=== PATIENT | female | born 1940 | race African-American/Black ===

== ENCOUNTER 2019-09-28 10:08 | Emergency (ER) | payer OTHER ==
[2019-09-28 11:07] LABS: Absolute Lymphocytes (CBC) 0.8 K/uL (0.7-4.9); Basophils % 0.4 % (0-1.3); Hematocrit 33.9 % (36.0-45.0); Lymphocytes % 10.1 % (15.3-44.8); MPV 8.3 fL (7.6-11.3); RBC Red Blood Cell Count 3.83 M/uL (3.86-4.86)
[2019-09-28 11:21] LABS: Potassium 3.5 mmol/L (3.5-5.1)
--- NOTE | 2019-09-28 11:55 | ER ---
Nurse's Notes [facility] Name: Shelby Narvaez Age: 79 yrs Sex: Female : 1940 Arrival Date: 09/28/2019 Time: 10:10 Bed 13 Private MD: Maxim Ha F Diagnosis: Acute upper respiratory infection, unspecified Presentation: 09/28 10:14 Presenting complaint: Patient states: i started coughing 2 days, i have had chills, tw2 coughing up yellow mucous, denies sob. Transition of care: patient was not received from another setting of care. Onset of symptoms was September 28, 2019. Risk Assessment: Do you want to hurt yourself or someone else?. Initial Sepsis Screen: Does the patient meet any 2 criteria? HR > 90 bpm. No. Patient's initial sepsis screen is negative. Does the patient have a suspected source of infection? Yes: Productive cough/pneumonia. Care prior to arrival: None. 10:14 Method Of Arrival: Ambulatory tw2 10:14 Acuity: GEOFFREY 3 tw2 Triage Assessment: 10:16 General: Appears in no apparent distress. obese, well groomed, Behavior is calm, tw2 cooperative, appropriate for age. Pain: Denies pain. Historical: - Allergies: 10:20 No Known Allergies; tw2 - Home Meds: 10:20 Nifedipine ER 60 mg Oral [Active]; Procardia 10 mg Oral cap 1 cap 3 times per day tw2 [Active]; metoprolol tartrate 50 mg Oral tab 1 tab [Active]; atorvastatin 20 mg oral tab 1 tab once daily [Active]; alendronate 70 mg/75 mL oral soln 75 mL once wkly [Active]; Centrum Silver Women 8 mg iron-400 mcg-300 mcg oral tab [Active]; Iron CR Oral [Active]; aspirin 81 mg Oral chew 1 tab once daily [Active]; meloxicam 7.5 mg oral tab 1 tab once daily [Active]; - PMHx: 10:20 Hypertension; Atrial Fib; tw2 - Immunization history:: Adult Immunizations. - Social history:: Smoking status: . - Ebola Screening: : Patient denies travel to an Ebola-affected area in the 21 days before illness onset. Screenin:25 Abuse screen: Denies threats or abuse. Nutritional screening: No deficits noted. rb1 Tuberculosis screening: No symptoms or risk factors identified. Fall Risk None identified. Assessment: 10:25 General: Appears in no apparent distress. comfortable, Behavior is calm, cooperative, rb1 Reports chills for 2-3 days. Pain: Complains of pain in diaphragm Pain currently is 5 out of 10 on a pain scale. Aggravated by coughing. Neuro: Level of Consciousness is awake, alert, obeys commands, Oriented to person, place, time, situation. Cardiovascular: Capillary refill < 3 seconds is brisk in bilateral fingers. Respiratory: Reports cough that is productive, yellow Denies shortness of breath. GI: Reports diarrhea, since this morning. : Reports urgency. Derm: Skin is dry, Skin is normal, Skin temperature is warm. 11:23 Reassessment: Patient appears in no apparent distress at this time. No changes from rb1 previously documented assessment. Family at the bedside. 12:20 Reassessment: Patient appears in no apparent distress at this time. Patient and/or rb1 family updated on plan of care and expected duration. Pain level reassessed. Patient is alert, oriented x 3, equal unlabored respirations, skin warm/dry/pink. Vital Signs: 10:15 BP 144 / 87; Pulse 98; Resp 18; Temp 100.1(O); Pulse Ox 95% on R/A; Weight 81.65 kg tw2 (R); Height 4 ft. 11 in. (149.86 cm); Pain 5/10; 11:24 BP 174 / 82; Pulse 83; Resp 17; Pulse Ox 98% on R/A; rb1 12:20 BP 168 / 83; Pulse 87; Resp 17; Pulse Ox 100% on R/A; Pain 5/10; rb1 10:15 Body Mass Index 36.36 (81.65 kg, 149.86 cm) tw2 ED Course: 10:10 Patient arrived in ED. mr 10:11 Maxim Ha MD is Private Physician. mr 10:12 Femi Diaz MD is Attending Physician. joyce 10:15 Triage completed. tw2 10:18 Rosa Maria Kamara FNP-C is [facility]. kb 10:20 Arm band placed on. tw2 10:25 Patient has correct armband on for positive identification. Placed in gown. Bed in low rb1 position. Call light in reach. Side rails up X 1. Pulse ox on. NIBP on. Warm blanket given. 10:36 Kait Horowitz, RN is Primary Nurse. rb1 11:02 Initial lab(s) drawn, by me, sent to lab. Flu and/or RSV swab sent to lab. Inserted jb1 saline lock: 22 gauge in left antecubital area, using aseptic technique. Blood collected. 11:39 X-ray completed. Patient tolerated procedure well. Patient moved back from radiology. [facility] 12:28 No provider procedures requiring assistance completed. IV discontinued, intact, rb1 bleeding controlled, No redness/swelling at site. Pressure dressing applied. Administered Medications: No medications were administered Outcome: 11:54 Discharge ordered by . kb 12:28 Patient left the ED. rb1 12:28 Discharged to home via wheelchair, with family. rb1 12:28 Condition: stable 12:28 Discharge instructions given to patient, Instructed on discharge instructions, follow up and referral plans. medication usage, Demonstrated understanding of instructions, follow-up care, medications, Prescriptions given X 1. Signatures: Richard Swan jb1 Rosa Maria Kamara, SPIRITUAL ADVISOR-C SPIRITUAL ADVISOR-Femi Chaidez MD MD cha Rivera, Mary CachorroDella 1 Kait Horowitz, RN RN rb1 Shira Boyer RN RN tw2
--- NOTE | 2019-09-28 11:56 | EDPHYS ---
Physician Documentation [facility] Name: Shelby Narvaez Age: 79 yrs Sex: Female : 1940 Arrival Date: 09/28/2019 Time: 10:10 Bed 13 Private MD: Maxim Ha F ED Physician Femi Diaz HPI: 09/28 10:29 This 79 yrs old Black Female presents to ER via Ambulatory with complaints of Cough. kb 10:29 The patient or guardian reports cough, that is intermittent, described as moderate, kb with no sputum, flu symptoms, low-grade fever. Onset: The symptoms/episode began/occurred 2 day(s) ago. Severity of symptoms: At their worst the symptoms were moderate, in the emergency department the symptoms have improved, mildly. Modifying factors: The symptoms are alleviated by nothing, the symptoms are aggravated by nothing. Associated signs and symptoms: Pertinent positives: fever, Pertinent negatives: chest pain, diarrhea, ear ache, nausea, rhinorrhea, sore throat, vomiting. The patient has not experienced similar symptoms in the past. The patient has not recently seen a physician. Historical: - Allergies: 10:20 No Known Allergies; tw2 - Home Meds: 10:20 Nifedipine ER 60 mg Oral [Active]; Procardia 10 mg Oral cap 1 cap 3 times per day tw2 [Active]; metoprolol tartrate 50 mg Oral tab 1 tab [Active]; atorvastatin 20 mg oral tab 1 tab once daily [Active]; alendronate 70 mg/75 mL oral soln 75 mL once wkly [Active]; Centrum Silver Women 8 mg iron-400 mcg-300 mcg oral tab [Active]; Iron CR Oral [Active]; aspirin 81 mg Oral chew 1 tab once daily [Active]; meloxicam 7.5 mg oral tab 1 tab once daily [Active]; - PMHx: 10:20 Hypertension; Atrial Fib; tw2 - Immunization history:: Adult Immunizations. - Social history:: Smoking status: . - Ebola Screening: : Patient denies travel to an Ebola-affected area in the 21 days before illness onset. ROS: 10:26 ENT: Negative for injury, pain, and discharge, Neck: Negative for injury, pain, and kb swelling, Cardiovascular: Negative for chest pain, palpitations, and edema, Abdomen/GI: Negative for abdominal pain, nausea, vomiting, diarrhea, and constipation, Back: Negative for injury and pain, MS/Extremity: Negative for injury and deformity, Skin: Negative for injury, rash, and discoloration, Neuro: Negative for headache, weakness, numbness, tingling, and seizure. 10:26 Constitutional: Positive for chills, fever. 10:26 Respiratory: Positive for cough. Exam: 10:29 Constitutional: This is a well developed, well nourished patient who is awake, alert, kb and in no acute distress. Head/Face: Normocephalic, atraumatic. ENT: Nares patent. No nasal discharge, no septal abnormalities noted. Tympanic membranes are normal and external auditory canals are clear. Oropharynx with no redness, swelling, or masses, exudates, or evidence of obstruction, uvula midline. Mucous membranes moist. Neck: Trachea midline, no thyromegaly or masses palpated, and no cervical lymphadenopathy. Supple, full range of motion without nuchal rigidity, or vertebral point tenderness. No Meningismus. Chest/axilla: Normal chest wall appearance and motion. Nontender with no deformity. No lesions are appreciated. Cardiovascular: Regular rate and rhythm with a normal S1 and S2. No gallops, murmurs, or rubs. Normal PMI, no JVD. No pulse deficits. Respiratory: Lungs have equal breath sounds bilaterally, clear to auscultation and percussion. No rales, rhonchi or wheezes noted. No increased work of breathing, no retractions or nasal flaring. Abdomen/GI: Soft, non-tender, with normal bowel sounds. No distension or tympany. No guarding or rebound. No evidence of tenderness throughout. Back: No spinal tenderness. No costovertebral tenderness. Full range of motion. Skin: Warm, dry with normal turgor. Normal color with no rashes, no lesions, and no evidence of cellulitis. MS/ Extremity: Pulses equal, no cyanosis. Neurovascular intact. Full, normal range of motion. Neuro: Awake and alert, GCS 15, oriented to person, place, time, and situation. Cranial nerves II-XII grossly intact. Motor strength 5/5 in all extremities. Sensory grossly intact. Cerebellar exam normal. Normal gait. Vital Signs: 10:15 BP 144 / 87; Pulse 98; Resp 18; Temp 100.1(O); Pulse Ox 95% on R/A; Weight 81.65 kg tw2 (R); Height 4 ft. 11 in. (149.86 cm); Pain 5/10; 11:24 BP 174 / 82; Pulse 83; Resp 17; Pulse Ox 98% on R/A; rb1 12:20 BP 168 / 83; Pulse 87; Resp 17; Pulse Ox 100% on R/A; Pain 5/10; rb1 10:15 Body Mass Index 36.36 (81.65 kg, 149.86 cm) tw2 MDM: 10:21 Patient medically screened. kb 10:25 Data reviewed: vital signs, nurses notes. Data interpreted: Pulse oximetry: on room air kb is 95 %. Interpretation: normal. 11:54 Counseling: I had a detailed discussion with the patient and/or guardian regarding: the kb historical points, exam findings, and any diagnostic results supporting the discharge/admit diagnosis, lab results, radiology results, the need for outpatient follow up, a family practitioner, to return to the emergency department if symptoms worsen or persist or if there are any questions or concerns that arise at home. 11:57 Test interpretation: by ED physician or midlevel provider: plain radiologic studies, kb negative for pneumonia. ED course: Pt will follow up with Dr Ha next week for reevaluation. . 09/28 10:25 Order name: CBC with Diff 09/28 10:25 Order name: Basic Metabolic Panel 09/28 10:25 Order name: Flu 09/28 10:25 Order name: Blood Culture Adult (2) 09/28 11:09 Order name: CBC with Automated Diff; Complete Time: 11:13 EDMA 09/28 11:21 Order name: Basic Metabolic Panel; Complete Time: 11:25 EDMS 09/28 10:25 Order name: Chest Pa And Lat (2 Views) XRAY 09/28 10:25 Order name: IV Start; Complete Time: 11:02 kb 09/28 11:26 Order name: Influenza Screen (A ; Complete Time: 11:27 EDMS 09/28 12:03 Order name: RAD; Complete Time: 12:05 EDMS 09/28 12:06 Order name: Blood Culture EDMS Administered Medications: No medications were administered Disposition: 09/28/19 11:54 Discharged to Home. Impression: Acute upper respiratory infection, unspecified. - Condition is Stable. - Discharge Instructions: Upper Respiratory Infection, Adult, [id number], Viral Respiratory Infection, [id number]. - Prescriptions for Bromfed DM 2- 30-10 mg/5 mL Oral syrup - take 10 milliliter by ORAL route every 4 hours As needed; 100 milliliter. - Medication Reconciliation Form, Thank You Letter, Antibiotic Education, Prescription Opioid Use form. - Follow up: Emergency Department; When: As needed; Reason: Worsening of condition. Follow up: Private Physician; When: 2 - 3 days; Reason: Recheck today's complaints, Continuance of care, Re-evaluation by your physician. Addendum: 10/02/2019 10:34 Co-signature as Attending Physician, Femi Diaz MD I agree with the assessment and c canela plan of care. Signatures: Dispatcher [employer] EDMA Rosa Maria Kamara, MANAGER PAID-C NALLELY-Femi Chaidez MD MD cha Barber, Rebecca, RN RN rb1 Shira Boyer RN RN tw2 Corrections: (The following items were deleted from the chart) 09/28 12:28 11:54 09/28/2019 11:54 Discharged to Home. Impression: Acute upper respiratory rb1 infection, unspecified. Condition is Stable. Forms are Medication Reconciliation Form, Thank You Letter, Antibiotic Education, Prescription Opioid Use. Follow up: Emergency Department; When: As needed; Reason: Worsening of condition. Follow up: Private Physician; When: 2 - 3 days; Reason: Recheck today's complaints, Continuance of care, Re-evaluation by your physician. kb
--- NOTE | 2019-09-28 11:57 | RAD REPORT ---
EXAM DESCRIPTION: Tamika Mcnamara (2 Views)09/28/2019 11:39 am CLINICAL HISTORY: Cough COMPARISON: 2012 FINDINGS: The lungs appear clear of acute infiltrate. The heart is mildly enlarged The aorta is tortuous/ectatic IMPRESSION: No acute abnormalities displayed
[2019-09-28 12:33] VITALS: TEMP 100.1
[2019-09-28 12:35] VITALS: BP 174/82; O2SAT 98
== END 2019-09-28 12:28 | disposition home or self-care (01) ==
LOC: ER 10:08
DX: J06.9 Acute upper respiratory infection, unspecified (principal); I10 Essential (primary) hypertension; I48.91 Unspecified atrial fibrillation; Z79.82 Long term (current) use of aspirin
CPT/HCPCS: 36415; 71046; 80048; 85025; 87804; 99284

== ENCOUNTER 2022-04-29 17:24 | Inpatient (IN) | payer OTHER ==
[2022-04-29 21:43] LABS: Absolute Lymphocytes (CBC) 1.3 K/uL (0.7-4.9); Hematocrit 36.7 % (36.0-45.0); Lymphocytes % 15.4 % (15.3-44.8); MCV 90.7 fL (80-100); MPV 7.8 fL (7.6-11.3); RBC Red Blood Cell Count 4.05 M/uL (3.86-4.86)
--- NOTE | 2022-04-29 21:59 | RAD REPORT ---
EXAM DESCRIPTION: Tamika Single View04/29/2022 9:41 pm CLINICAL HISTORY: Palpitations COMPARISON: 2018 FINDINGS: The lungs appear clear of acute infiltrate. The heart is normal size IMPRESSION: No acute abnormalities displayed
[2022-04-29 22:02] LABS: Potassium 4.1 mmol/L (3.5-5.1)
[2022-04-29 22:08] LABS: Troponin High Sensitivity 251.2 pg/mL (<58.9)
[2022-04-29] MEDS ORDERED: CLOPIDOGREL 75 MG TABLET ONE (22:23)
[2022-04-29] MEDS ORDERED: ASPIRIN 81 MG CHEWABLE TABLET ONE (22:23)
--- NOTE | 2022-04-29 22:43 | EDPHYS ---
Physician Documentation [facility] Name: Shelby Narvaez Age: 81 yrs Sex: Female : 1940 Arrival Date: 04/29/2022 Time: 17:27 Bed 7 Private MD: ED Physician Flo Benson HPI: 04/30 07:08 This 81 yrs old Black Female presents to ER via Wheelchair with complaints of Weakness. kdr 07:08 Patient is brought to the ED because she is not feeling herself today. Her daughter kdr states that they are thinking that she may not be feeding well feeling well because she has not eaten much. Despite feeding her though later in the day, she was still not feeling well felt weak and jittery.. Onset: The symptoms/episode began/occurred gradually, this morning. Severity of symptoms: At their worst the symptoms were mild in the emergency department the symptoms are unchanged. The patient has experienced similar episodes in the past, a few times. The patient has not recently seen a physician. Historical: - Allergies: 04/29 17:54 No Known Allergies; ap3 - Home Meds: 04/30 00:13 alendronate 70 mg/75 mL Oral soln 75 mL once wkly [Active]; aspirin 81 mg Oral chew 1 kd3 tab once daily [Active]; atorvastatin 20 mg Oral tab 1 tab once daily [Active]; Centrum Silver Women 8 mg iron-400 mcg-300 mcg Oral tab [Active]; Iron CR Oral [Active]; meloxicam 7.5 mg Oral tab 1 tab once daily [Active]; metoprolol tartrate 50 mg Oral tab 1 tab [Active]; Nifedipine ER 60 mg Oral [Active]; Procardia 10 mg Oral cap 1 cap 3 times per day [Active]; - PMHx: 04/29 17:54 Atrial Fib; Hypertension; Anemia; ap3 - Immunization history:: Client reports receiving the 2nd dose of the Covid vaccine. - Social history:: Smoking status: Patient denies any tobacco usage or history of. ROS: 04/30 07:08 Constitutional: Negative for fever, chills, and weight loss, Eyes: Negative for injury, kdr pain, redness, and discharge, Neck: Negative for injury, pain, and swelling, Cardiovascular: Negative for chest pain, palpitations, and edema, Respiratory: Negative for shortness of breath, cough, wheezing, and pleuritic chest pain, Abdomen/GI: Negative for abdominal pain, nausea, vomiting, diarrhea, and constipation, Back: Negative for injury and pain, : Negative for injury, bleeding, discharge, and swelling, MS/Extremity: Negative for injury and deformity, Skin: Negative for injury, rash, and discoloration, Neuro: Negative for headache, weakness, numbness, tingling, and seizure activity. Psych: Negative for depression, anxiety, suicide ideation, homicidal ideation, and hallucinations, Allergy/Immunology: Negative for hives, rash, and allergies, Endocrine: Negative for neck swelling, polydipsia, polyuria, polyphagia, and marked weight changes, Hematologic/Lymphatic: Negative for swollen nodes, abnormal bleeding, and unusual bruising. Exam: 07:08 Constitutional: This is a well developed, well nourished patient who is awake, alert, kdr and in no acute distress. Head/Face: Normocephalic, atraumatic. Eyes: Pupils equal round and reactive to light, extra-ocular motions intact. Lids and lashes normal. Conjunctiva and sclera are non-icteric and not injected. Cornea within normal limits. Periorbital areas with no swelling, redness, or edema. Neck: Trachea midline, no thyromegaly or masses palpated, and no cervical lymphadenopathy. Supple, full range of motion without nuchal rigidity, or vertebral point tenderness. No Meningismus. Chest/axilla: Normal chest wall appearance and motion. Nontender with no deformity. No lesions are appreciated. Cardiovascular: Regular rate and rhythm with a normal S1 and S2. No gallops, murmurs, or rubs. Normal PMI, no JVD. No pulse deficits. Respiratory: Lungs have equal breath sounds bilaterally, clear to auscultation and percussion. No rales, rhonchi or wheezes noted. No increased work of breathing, no retractions or nasal flaring. Abdomen/GI: Soft, non-tender, with normal bowel sounds. No distension or tympany. No guarding or rebound. No evidence of tenderness throughout. Back: No spinal tenderness. No costovertebral tenderness. Full range of motion. Skin: Warm, dry with normal turgor. Normal color with no rashes, no lesions, and no evidence of cellulitis. MS/ Extremity: Pulses equal, no cyanosis. Neurovascular intact. Full, normal range of motion. Neuro: Awake and alert, GCS 15, oriented to person, place, time, and situation. Cranial nerves II-XII grossly intact. Motor strength 5/5 in all extremities. Sensory grossly intact. Cerebellar exam normal. Normal gait. Psych: Awake, alert, with orientation to person, place and time. Behavior, mood, and affect are within normal limits. Vital Signs: 04/29 17:52 BP 146 / 75; Pulse 80; Resp 17; Temp 98.4; Pulse Ox 100% ; Weight 83.91 kg; Height 5 ap3 ft. 0 in. (152.40 cm); 20:29 BP 177 / 80 LA (auto/); Pulse 96; Resp 16 S; Temp 97.7(O); Pulse Ox 100% on R/A; aa9 22:07 BP 176 / 74; Pulse 73; Resp 21 S; Pulse Ox 100% on R/A; as6 22:08 Pulse 74; Resp 20; Pulse Ox 100% ; kd3 23:00 BP 164 / 90; Pulse 71; Resp 17 S; Pulse Ox 100% on R/A; as6 23:47 BP 117 / 85; Pulse 69; Resp 17 S; Pulse Ox 100% on R/A; as6 04/30 00:12 BP 164 / 90; Pulse 64; Resp 16; Pulse Ox 100% on R/A; kd3 00:41 BP 172 / 103; Pulse 68; Resp 16 S; Pulse Ox 100% on R/A; as6 04/29 17:52 Body Mass Index 36.13 (83.91 kg, 152.40 cm) ap3 MDM: 04/29 22:42 Patient medically screened. kdr 04/30 07:08 Data reviewed: vital signs, nurses notes, lab test result(s), radiologic studies. kdr Counseling: I had a detailed discussion with the patient and/or guardian regarding: the historical points, exam findings, and any diagnostic results supporting the discharge/admit diagnosis, lab results, radiology results. 04/29 21:23 Order name: Basic Metabolic Panel; Complete Time: 22:12 04/29 21:23 Order name: CBC with Diff; Complete Time: 22:12 04/29 21:23 Order name: Troponin HS; Complete Time: 22:12 04/29 21:23 Order name: XRAY Chest (1 view); Complete Time: 22:12 04/29 22:26 Order name: COVID-19 SARS RT PCR (Document "Date of Onset" if Symptomatic) 04/30 00:09 Order name: Urine Dipstick-Ancillary [facility] 04/29 21:23 Order name: EKG; Complete Time: 21:24 04/29 21:23 Order name: Cardiac monitoring; Complete Time: 21:23 04/29 21:23 Order name: EKG - Nurse/Tech; Complete Time: 22:08 04/29 21:23 Order name: IV Saline Lock; Complete Time: 22:00 04/29 21:23 Order name: Labs collected and sent; Complete Time: 22:00 04/29 21:23 Order name: O2 Per Protocol; Complete Time: 21:23 04/29 21:23 Order name: O2 Sat Monitoring; Complete Time: 21:23 04/29 21:27 Order name: Urine Dipstick-Ancillary (obtain specimen); Complete Time: 00:10 kdr Administered Medications: 04/29 22:25 Drug: Aspirin Chewable Tablet 324 mg Route: PO; 04/30 00:10 Follow up: Response: No adverse reaction 04/29 22:25 Drug: PlaVIX (clopidogrel) 300 mg Route: PO; 04/30 00:10 Follow up: Response: No adverse reaction 3 Disposition Summary: 04/29/22 22:42 Hospitalization Ordered Hospitalization Status: Inpatient Admission kdr Provider: Chastity Roman kdr Location: Telemetry/MedSurg (Inpatient) kdr Condition: Fair kdr Problem: new kdr Symptoms: have improved kdr Bed/Room Type: Standard kdr Room Assignment: 218(04/29/22 23:20) eb1 Diagnosis - Subsequent non-ST elevation (NSTEMI) myocardial infarction kdr - Hypertensive heart disease without heart failure kdr Forms: - Medication Reconciliation Form kdr - SBAR form kdr Signatures: Dispatcher [employer] EDMO Flo Benson MD MD kdr Rosio Macias RN RN ap3 Olinda Coleman RN RN eb1 Jake Wilkes RN RN as6 Stacie Cartagena RN RN kd3 Corrections: (The following items were deleted from the chart) 04/29 23:20 22:42 kdr eb1
--- NOTE | 2022-04-29 22:43 | ER ---
Nurse's Notes [facility] Name: Shelby Narvaez Age: 81 yrs Sex: Female : 1940 Arrival Date: 04/29/2022 Time: 17:27 Bed 7 Private MD: Diagnosis: Subsequent non-ST elevation (NSTEMI) myocardial infarction;Hypertensive heart disease without heart failure Presentation: 04/29 17:52 Chief complaint: Patient states: she doesn't feel like herself today. Daughter states ap3 that they were thinking maybe it was because she didn't eat much, however they fed her a good lunch and she still was feeling "off". patient states she feels weak and jittery. She reports these feelings began this morning when she woke up. Coronavirus screen: At this time, the client does not indicate any symptoms associated with coronavirus-19. Ebola Screen: No symptoms or risks identified at this time. Initial Sepsis Screen: Does the patient meet any 2 criteria? No. Patient's initial sepsis screen is negative. Does the patient have a suspected source of infection? No. Patient's initial sepsis screen is negative. Risk Assessment: Do you want to hurt yourself or someone else? Patient reports no desire to harm self or others. Onset of symptoms was April 29, 2022. 17:52 Method Of Arrival: Wheelchair ap3 17:52 Acuity: GEOFFREY 3 ap3 Triage Assessment: 17:55 General: Appears in no apparent distress. comfortable, Behavior is calm, cooperative, ap3 appropriate for age. General: Reports fatigue for. Pain: Denies pain. Neuro: Level of Consciousness is awake, alert, obeys commands, Oriented to person, place, time, situation, Reports weakness since this morning. Cardiovascular: Patient's skin is warm and dry. Respiratory: Airway is patent Respiratory effort is even, unlabored, Respiratory pattern is regular, symmetrical. Historical: - Allergies: 17:54 No Known Allergies; ap3 - Home Meds: 04/30 00:13 alendronate 70 mg/75 mL Oral soln 75 mL once wkly [Active]; aspirin 81 mg Oral chew 1 kd3 tab once daily [Active]; atorvastatin 20 mg Oral tab 1 tab once daily [Active]; Centrum Silver Women 8 mg iron-400 mcg-300 mcg Oral tab [Active]; Iron CR Oral [Active]; meloxicam 7.5 mg Oral tab 1 tab once daily [Active]; metoprolol tartrate 50 mg Oral tab 1 tab [Active]; Nifedipine ER 60 mg Oral [Active]; Procardia 10 mg Oral cap 1 cap 3 times per day [Active]; - PMHx: 04/29 17:54 Atrial Fib; Hypertension; Anemia; ap3 - Immunization history:: Client reports receiving the 2nd dose of the Covid vaccine. - Social history:: Smoking status: Patient denies any tobacco usage or history of. Screenin:56 Abuse screen: Denies threats or abuse. Nutritional screening: No deficits noted. ap3 Tuberculosis screening: No symptoms or risk factors identified. 04/30 00:47 Fall Risk IV access (20 points). Ambulatory Aid- Crutches/Cane/Walker (15 pts). Gait- kd3 Weak (10 pts.). Assessment: 04/29 20:32 General: Appears in no apparent distress. comfortable. Pain: Denies pain. aa9 20:33 Cardiovascular:. Respiratory: Respiratory effort is even, unlabored, Respiratory aa9 pattern is regular. 21:23 General: Appears in no apparent distress. Behavior is calm, cooperative. Neuro: Level kd3 of Consciousness is awake, alert, obeys commands, Oriented to person, place, time, situation, Automation Tech are equal bilaterally Moves all extremities. Vital Signs: 17:52 BP 146 / 75; Pulse 80; Resp 17; Temp 98.4; Pulse Ox 100% ; Weight 83.91 kg; Height 5 ap3 ft. 0 in. (152.40 cm); 20:29 BP 177 / 80 LA (auto/); Pulse 96; Resp 16 S; Temp 97.7(O); Pulse Ox 100% on R/A; aa9 22:07 BP 176 / 74; Pulse 73; Resp 21 S; Pulse Ox 100% on R/A; as6 22:08 Pulse 74; Resp 20; Pulse Ox 100% ; kd3 23:00 BP 164 / 90; Pulse 71; Resp 17 S; Pulse Ox 100% on R/A; as6 23:47 BP 117 / 85; Pulse 69; Resp 17 S; Pulse Ox 100% on R/A; as6 04/30 00:12 BP 164 / 90; Pulse 64; Resp 16; Pulse Ox 100% on R/A; kd3 00:41 BP 172 / 103; Pulse 68; Resp 16 S; Pulse Ox 100% on R/A; as6 04/29 17:52 Body Mass Index 36.13 (83.91 kg, 152.40 cm) ap3 ED Course: 04/29 17:27 Patient arrived in ED. as 17:54 Triage completed. ap3 17:56 Arm band placed on left wrist. ap3 19:57 Jake Wilkes, RN is Primary Nurse. as6 21:26 Flo Benson MD is Attending Physician. kdr 21:43 XRAY Chest (1 view) In Process Unspecified. EDMS 22:08 No provider procedures requiring assistance completed. Inserted saline lock: 22 gauge kd3 in right antecubital area, using aseptic technique. Blood collected. 22:40 Chastity Roman MD is Hospitalizing Provider. kdr 04/30 00:13 Patient has correct armband on for positive identification. Placed in gown. Bed in low kd3 position. 00:47 Patient admitted, IV remains in place. kd3 Administered Medications: 04/29 22:25 Drug: Aspirin Chewable Tablet 324 mg Route: PO; kd3 04/30 00:10 Follow up: Response: No adverse reaction kd3 04/29 22:25 Drug: PlaVIX (clopidogrel) 300 mg Route: PO; kd3 04/30 00:10 Follow up: Response: No adverse reaction kd3 Medication: 00:13 VIS not applicable for this client. kd3 Outcome: 04/29 22:42 Decision to Hospitalize by Provider. kdr 04/30 00:47 Admitted to Med/surg accompanied by nurse, room 218. kd3 Condition: stable Discharge instructions given to patient, family, Instructed on the need for admit, Demonstrated understanding of instructions. 01:06 Patient left the ED. kd3 Signatures: Dispatcher [employer] EDMS Flo Benson MD MD kdr Yadira Wheeler Amanda, RN RN ap3 Jake Wilkes, RUDY RN as6 Stacie Cartagena RN RN kd3 Kiana Young, RN RN aa9
--- NOTE | 2022-04-29 23:15 | P.HP ---
Certification for Inpatient Patient admitted to: Inpatient With expected LOS: <2 Midnights Patient will require the following post-hospital care: None Practitioner: I am a practitioner with admitting privileges, knowledge of patient current condition, hospital course, and medical plan of care. Services: Services provided to patient in accordance with Admission requirements found in Title 42 Section 412.3 of the Code of Federal Regulations <Melissa Mcginnis - Last Filed: 04/29/22 23:49> Patient History Date of Service: 04/29/22 Reason for admission: NSTMEI History of Present Illness: Patient is an 81 y/o F with PMH of HTN and afib not on anticoagulation who presented to the ED with complaints of generalized weakness and decreased appetite starting this morning. Per family, patient did not eat anything this morning then could not get up off the toilet. They called her PCP who told her to come in and get checked out. Initial labs WNL. EKG showed LVH with repolarization abnormality. Trop HS 251. She was given 324 aspirin and 300 plavix. Patient denies any chest pain, SHOB, diaphoresis, numbness, N/V. She does not see a mirror machine feeder and denies having a stress test or echo in the past. Patient is admitted for further evaluation and treatment. Home medications list reviewed: Yes - Past Medical/Surgical History Diabetic: No -: Hypertension -: Atrial Fibrillation -: Hysterectomy Psychosocial/ Personal History: Patient lives at home with her . She has 2 daughters. - Family History Mother -: Heart disease Father -: Hypertension, Diabetes - Social History Smoking Status: Never smoker Alcohol use: No CD- Drugs: No Caffeine use: No Place of Residence: Home <Melissa Mcginnis - Last Filed: 04/29/22 23:49> Date of Service: 04/29/22 <Chastity Roman - Last Filed: 05/02/22 23:47> Allergies No Known Allergies Allergy (Verified 04/30/22 01:09) Home Medications: Aspirin [Aspirin EC] 81 mg PO DAILY 04/30/22 Centrum Multivitamins 1 tab PO DAILY 04/30/22 Ergocalciferol (Vitamin D2) [Vitamin D2] 1,250 mcg PO DAILY 04/30/22 Ferrous Gluconate [Iron] 65 mg PO DAILY 04/30/22 Metoprolol Succinate [Toprol Xl*] 25 mg PO DAILY 04/30/22 NIFEdipine [Nifedipine ER] 1 tab PO DAILY 04/30/22 Olmesartan/Hydrochlorothiazide [Olmesartan-Hctz 40-12.5 mg Tab] 1 each PO DAILY 04/30/22 Atorvastatin Calcium [Lipitor] 80 mg PO BEDTIME #30 tab 05/01/22 Clopidogrel Bisulfate [Plavix*] 75 mg PO DAILY #30 tablet 05/01/22 Review of Systems General: Weakness, As per HPI <Melissa Mcginnis - Last Filed: 04/29/22 23:49> Physical Examination - Physical Exam General: Alert, In no apparent distress HEENT: Atraumatic, PERRLA, EOMI, Sclerae nonicteric Neck: Supple, 2+ carotid pulse no bruit, No LAD, Without JVD or thyroid abnormality Respiratory: Clear to auscultation bilaterally, Normal air movement Cardiovascular: Irregular heart rate/rhythm (afib) Gastrointestinal: Normal bowel sounds, No tenderness Musculoskeletal: No tenderness Integumentary: No rashes Neurological: Normal speech, Normal strength at 5/5 x4 extr, Normal tone, Normal affect - Studies Laboratory Data (last 24 hrs) 04/29/22 21:35: WBC 8.7, Hgb 12.1, Hct 36.7, Plt Count 243 04/29/22 21:35: Sodium 139, Potassium 4.1, BUN 36 H, Creatinine 1.11, Glucose 102 <Melissa Mcginnis - Last Filed: 04/29/22 23:49> Assessment and Plan - Problems (Diagnosis) (1) NSTEMI (non-ST elevated myocardial infarction) Status: Acute (2) Atrial fibrillation Status: Acute Qualifiers: Atrial fibrillation type: unspecified chronic Qualified Code(s): I48.20 - Chronic atrial fibrillation, unspecified; I48.2 - Chronic atrial fibrillation (3) Hypertension Status: Chronic Qualifiers: Hypertension type: primary hypertension Qualified Code(s): I10 - Essential (primary) hypertension - Plan -Heparin drip ordered -Cardiology consulted. Monitor on telemetry -NPO in case for cardiac catheterization tomorrow -CPK and CKMB pending. Will continue to monitor troponin HS. -Echo, lipid panel, and TSH ordered -Aspirin, plavix, and atorvastatin daily -Reconcile and continue home medications -VTE ppx -Full code Discharge Plan: Home Plan to discharge in: 48 Hours - Advance Directives Does patient have a Living Will: Yes Does patient have a Durable POA for Healthcare: No - Code Status/Comfort Care Code Status Assessed: Yes (Full) Critical Care: No Time Spent Managing Pts Care (In Minutes): 50 <Melissa Mcginnis - Last Filed: 04/29/22 23:49> Date of Service: 04/29/22 SUBJECTIVE: Agree with the HPI as mentioned above OBJECTIVE: Vital Signs: reviewed General: WNL HEENT:WNL CV: WNL Lungs: WNL Abd: WNL Ext: WNL ASSESSMENT: 1. Angina PLAN: Plan as mentioned above <Chastity Roman - Last Filed: 05/02/22 23:47>
[2022-04-30 00:09] LABS: Urine Blood Trace-intact (Negative); Urine Glucose Negative (Negative); Urine Protein 1+ (Negative); Urine Specific Gravity 1.015 (1.005-1.030); Urine pH 6.5 (5.0-7.0)
[2022-04-30] MEDS ORDERED: MORPHINE 2 MG/ML SYR IV PRN (01:19)
[2022-04-30] MEDS ORDERED: ACETAMINOPHEN 500 MG TAB PO PRN (01:19)
[2022-04-30] MEDS ORDERED: METOPROLOL TAR 25 MG TAB PO ONE (01:19)
[2022-04-30] MEDS ORDERED: ONDANSETRON 4 MG/2 ML VIAL IV PRN (01:19)
[2022-04-30] MEDS ORDERED: HEPARIN/D5W 25,000 UNIT/500 ML BAG IV SCH (01:19)
[2022-04-30] MEDS: HEPARIN 5000 UNIT/ML 1 ML VIAL IV SCH (02:00)
[2022-04-30] MEDS: NA CHLORIDE 0.9% 1,000 ML IV SCH ×2 (02:01→18:41)
[2022-04-30 02:35] LABS: CKMB Creatine Kinase MB 6.7 ng/mL (1.0-3.6)
[2022-04-30 03:17] LABS: Magnesium 1.9 mg/dL (1.8-2.4); Thyroid Stimulating Hormone 0.624 uIU/mL (0.360-3.740)
[2022-04-30 03:19] VITALS: BMI 34.1
[2022-04-30] MEDS: ASPIRIN EC 81 MG TAB PO SCH (08:52)
[2022-04-30] MEDS: CLOPIDOGREL 75 MG TABLET PO SCH (08:52)
[2022-04-30] MEDS ORDERED: NA CHLORIDE 0.9% 500 ML ONE (10:41)
[2022-04-30] MEDS ORDERED: HEPARIN 5000 UNIT/ML 1 ML VIAL ONE (12:03)
[2022-04-30] MEDS ORDERED: VERAPAMIL HCL 10 MG/4 ML VIAL IV ONE (12:03)
[2022-04-30] MEDS ORDERED: NITROGLYCERIN 100 MCG/ML SYR (for cath lab use only) IV ONE (12:04)
[2022-04-30] MEDS ORDERED: ATROPINE SULF 1 MG/10 ML SYR IV ONE (12:04)
[2022-04-30] MEDS ORDERED: MIDAZOLAM HCL 2 MG/2 ML INJ ONE (12:29)
[2022-04-30] MEDS ORDERED: FENTANYL CITR 100 MCG/2 ML ONE (12:29)
[2022-04-30] MEDS ORDERED: LIDOCAINE 1% 20 ML MDV ONE (12:41)
[2022-04-30] MEDS ORDERED: HYDRALAZINE HCL 20 MG/ML VIAL ONE (12:54)
--- NOTE | 2022-04-30 13:02 | CON ---
Date of Consultation: 04/30/2022 Reason For Consultation: Non-STEMI. History Of Present Illness: Ms. Narvaez is an 81-year-old black woman. Has had a history of hyperte nsion, dyslipidemia, anemia, paroxysmal atrial fibrillation. At one point, she took Coumadin, but charu cummins was not taking any anticoagulation. She is in sinus rhythm. Came in with nonspecific symptoms, mo stly severe weakness, nausea, diaphoresis. No actual chest pain. Denied any vomiting, PND, orthopne a, pedal edema, palpitations, syncope, fever, or chills. Her troponin came back at 370. Chest x-ray was negative. EKG is unremarkable. Pain free now. Past Medical History: As stated above. Allergies: NONE. Review of Systems: Negative. Social History: Negative. Family History: Positive for heart disease. Medications: At home include olmesartan with hydrochlorothiazide, Toprol, nifedipine, aspirin, and L ipitor. Physical Examination: General: Very pleasant. No acute distress. Vital Signs: Stable, afebrile. HEENT: Negative. Neck: Supple with no bruit. Chest: Clear. Cardiac: Revealed a regular rhythm and rate with aortic sclerosis murmur and S4 gallops. No rubs. Abdomen: Benign. Extremities: Revealed no clubbing, cyanosis, or edema. Diagnostic Data: As stated earlier. Impression And Plan: Elevated troponin, nonspecific symptoms, certainly could be secondary to orthos tatic hypotension and that certainly could raise her troponin, but nevertheless she has risk factors for heart disease including hypertension, dyslipidemia, and her age. I think we will have to perform a left heart catheterization, selective coronary artery to define her coronary anatomy. She underst ands the risk and the benefits of the procedure and she agrees to proceed. She has had paroxysmal at rial fibrillation. She is on aspirin. She is on beta-dwayne. She is in sinus rhythm. We will con tinue to observe that. Echocardiogram is pending as well. JOSE R/NEFTALY Voice ID: [id number] Report ID: [id number]
--- NOTE | 2022-04-30 13:49 | ECHO ---
HEIGHT: 5 ft 0 in WEIGHT: 174 lb 9.6 oz DATE OF STUDY: 04/30/[address]: Melissa Mcginnis 2-DIMENSIONAL: YES M.MODE: YES DOPPLER: YES COLOR FLOW: YES TDS: NO PORTABLE: YES DEFINITY: NO BUBBLE STUDY: NO DIAGNOSIS: NSTEMI CARDIAC HISTORY: CATHERIZATION: NO SURGERY: NO PROSTHETIC VALVE: NO PACEMAKER: NO MEASUREMENTS (cm) DIASTOLIC (NORMALS) SYSTOLIC (NORMALS) IVSd 1.0 (0.6-1.2) LA Diam 3.9 (1.9-4.0) LVEF 60-65% LVIDd 5.0 (3.5-5.7) LVIDs 2.3 (2.0-3.5) %FS 53% LVPWd 1.1 (0.6-1.2) Ao Diam 2.6 (2.0-3.7) 2 DIMENSIONAL ASSESSMENT: RIGHT ATRIUM: NORMAL LEFT ATRIUM: NORMAL RIGHT VENTRICLE: NORMAL LEFT VENTRICLE: NORMAL TRICUSPID VALVE: MILD TRICUSPID REGURGITATION MITRAL VALVE: MITRAL ANNULAR CALCIFICATION, NO MITRAL STENOSIS PULMONIC VALVE: MILD PULMONIC INSUFFICIENCY AORTIC VALVE: THICKENED, NO AORTIC STENOSIS PERICARDIAL EFFUSION: TRACE AORTIC ROOT: NORMAL LEFT VENTRICULAR WALL MOTION: NORMAL. DOPPLER/COLOR FLOW: SEE BELOW. COMMENTS: NORMAL LEFT VENTRICULAR EJECTION FRACTION. NORMAL WALL MOTION. MILD TRICUSPID REGURGITATION, MILD PULMONIC INSUFFICIENCY. TECHNOLOGIST: ANTONY BOWEN
[2022-04-30 17:37] LABS: Urine Appearance Clear (Clear); Urine Bilirubin Negative (Negative); Urine Blood Negative (Negative); Urine Color Yellow (Yellow); Urine Glucose Negative (Negative); Urine Protein Negative (Negative); Urine Urobilinogen 0.2 mg/dL (0.2-1.0)
--- NOTE | 2022-05-01 00:53 | OP ---
Date of Procedure: 04/30/2022 Surgeon: MADINA NEAL Procedure Performed: Selective coronary angiogram. Indication: Non-ST elevation myocardial infarction. Access: Right radial artery, 6-[place] closed with TR band. Access failed so we obtained the right f emoral artery 6-[place] closed with manual pressure. Complications: None. Bleeding: Less than 10 mL. Total Sedation Time: 35 minutes. Description Of Procedure: After risks, benefits, and alternatives were explained, the patient agreed to proceed and signed informed consent. The patient was brought into the cardiac catheterization la boratory, prepped and draped in usual sterile fashion. We used fentanyl and Versed in incremental do ses to achieve adequate moderate sedation, Then, I accessed right radial artery using pediatric micro puncture kit, placed a 6-[place] slender sheath and took a 5-[place] tiger 4.0 catheter in the aortic r oot, engaged the right coronary artery and I could not engage the left main due to spasm and I could not move the catheter well, so I abandoned the right radial access, removing the catheter and the wir es and the sheath, and placing TR band and then I obtained an access to right femoral artery with ult rasound guidance and micropuncture kit and placed a 6-[place] slender sheath and took a 6-[place] JL4 c atheter and aortic root, engaged left main, took standard views and then removed the catheter and the sheath. Manual pressure was used for hemostasis. Findings: 1.Left main: Very large with distal 10% to 20% stenosis with very large artery. 2.LAD: Heavily calcified vessel proximal to the mid diffuse disease, proximal section 60% to 70% an d the mid becomes 70% to 80% stenosis, very long segment of significant stenosis. 3.Left circumflex is patent for the most part, there is very small OM1 branch that comes off the cir c and has 90% ostial disease, but this is a small vessel. 4.RCA large and dominant with mid diffuse 30% to 40%. Conclusions: 1.Severe LAD stenosis. 2.Severe OM1 stenosis. 3.[id number] coronary artery disease elsewhere. Plan: 1.CSI atherectomy versus shockwave atherectomy and PCI of the LAD as an outpatient. 2.Medical management for the rest of her coronary artery disease. Her OM is severely stenosed, but is very small vessel and we will leave for medical management. SR/MODL Voice ID: [id number] Report ID: [id number]
[2022-05-01] MEDS: HEPARIN 5000 UNIT/ML 1 ML VIAL IV SCH (01:19)
[2022-05-01] MEDS: NA CHLORIDE 0.9% 1,000 ML IV SCH (03:59)
[2022-05-01 05:14] VITALS: O2SAT 96
[2022-05-01] MEDS: CLOPIDOGREL 75 MG TABLET PO SCH (08:47)
[2022-05-01] MEDS: ASPIRIN EC 81 MG TAB PO SCH (08:47)
--- NOTE | 2022-05-01 09:53 | EKG ---
Test Date: 2022-04-29 Test Time: 22:06:41 Anesthesia Technician: BONNY MEASUREMENT RESULTS: Intervals: Rate: 71 IN: 134 QRSD: 132 QT: 416 QTc: 452 [place]: P: 65 IN: 134 QRS: -31 T: 11 INTERPRETIVE STATEMENTS: Sinus rhythm with blocked premature atrial complexes Left axis deviation Left ventricular hypertrophy with QRS widening and repolarization abnormality Abnormal ECG Compared to ECG 12/31/2016 13:24:09 Atrial premature complex(es) now present Left-axis deviation now present Ventricular premature complex(es) no longer present Electronically Signed On 05-01-22 09:48:58 CDT by Dawit Oliveira
--- NOTE | 2022-05-01 09:53 | EKG ---
Test Date: 2022-04-29 Test Time: 22:38:45 Appliance Fixer: BONNY MEASUREMENT RESULTS: Intervals: Rate: 78 IN: 166 QRSD: 86 QT: 358 QTc: 408 [place]: P: 22 IN: 166 QRS: 63 T: 42 INTERPRETIVE STATEMENTS: Normal sinus rhythm with sinus arrhythmia Normal ECG Compared to ECG 04/29/2022 22:06:41 Atrial premature complex(es) no longer present Left-axis deviation no longer present Left ventricular hypertrophy no longer present Early repolarization no longer present Electronically Signed On 05-01-22 09:48:57 CDT by Dawit Oliveira
[2022-05-01 09:59] VITALS: BP 148/67; TEMP 97.8
--- NOTE | 2022-05-02 23:48 | P.PN ---
Subjective Date of Service: 04/30/22 Subjective: No new changes, No C/O voiced, Improving Review of Systems 10-point ROS is otherwise unremarkable Physical Examination - Vital Signs Temperature: 97.8 F Blood Pressure: 148/67 Pulse: 87 Respirations: 16 Pulse Ox (%): 100 - Physical Exam General: Alert, In no apparent distress HEENT: Atraumatic, PERRLA, EOMI Neck: Supple, JVD not distended Respiratory: Clear to auscultation bilaterally, Normal air movement Cardiovascular: Regular rate/rhythm, Normal S1 S2 Gastrointestinal: Normal bowel sounds, No tenderness Musculoskeletal: No tenderness Integumentary: No rashes Neurological: Normal speech, Normal tone, Normal affect Lymphatics: No axilla or inguinal lymphadenopathy - Studies Medications List Reviewed: Yes Assessment & Plan - Problems (Diagnosis) (1) Atrial fibrillation Status: Acute Qualifiers: Atrial fibrillation type: unspecified chronic Qualified Code(s): I48.20 - Chronic atrial fibrillation, unspecified; I48.2 - Chronic atrial fibrillation (2) NSTEMI (non-ST elevated myocardial infarction) Status: Acute (3) Hypertension Status: Chronic Qualifiers: Hypertension type: primary hypertension Qualified Code(s): I10 - Essential (primary) hypertension - Plan patient scheduled for cardiac catheterization today. Anticipate discharge in the morning if no abnormalities. - Advance Directives Does patient have a Living Will: Yes Does patient have a Durable POA for Healthcare: Yes
--- NOTE | 2022-05-02 23:49 | P.DS ---
Discharge Date: 05/01/22 Disposition: ROUTINE DISCHARGE Discharge Condition: GOOD Reason for Admission: NSTMEI - Problems (1) Atrial fibrillation Status: Acute Qualifiers: Atrial fibrillation type: unspecified chronic Qualified Code(s): I48.20 - Chronic atrial fibrillation, unspecified; I48.2 - Chronic atrial fibrillation (2) NSTEMI (non-ST elevated myocardial infarction) Status: Acute (3) Hypertension Status: Chronic Qualifiers: Hypertension type: primary hypertension Qualified Code(s): I10 - Essential (primary) hypertension Brief History of Present Illness: Patient is an 81 y/o F with PMH of HTN and afib not on anticoagulation who presented to the ED with complaints of generalized weakness and decreased appetite starting this morning. Per family, patient did not eat anything this morning then could not get up off the toilet. They called her PCP who told her to come in and get checked out. Initial labs WNL. EKG showed LVH with repolarization abnormality. Trop HS 251. She was given 324 aspirin and 300 plavix. Patient denies any chest pain, SHOB, diaphoresis, numbness, N/V. She does not see a slurry man and denies having a stress test or echo in the past. Patient is admitted for further evaluation and treatment. Hospital Course: Patient clinically doing well. Patient will follow with Cardiology for further intervention. At this time, patient is stable for discharge home. Vital Signs/Physical Exam: Temp Pulse Resp BP Pulse Ox 97.8 F 87 16 148/67 H 100 05/02/22 23:48 05/02/22 23:48 05/02/22 23:48 05/02/22 23:48 05/02/22 23:48 General: Alert, In no apparent distress, Oriented x3 Laboratory Data at Discharge: WBC 8.7 K/uL (4.3-10.9) 04/29/22 21:35 Hgb 12.1 g/dL (12.0-15.0) 04/29/22 21:35 Hct 36.7 % (36.0-45.0) 04/29/22 21:35 Plt Count 243 K/uL (152-406) 04/29/22 21:35 APTT Cancelled 04/30/22 12:00 Sodium 139 mmol/L (136-145) 04/29/22 21:35 Potassium 4.1 mmol/L (3.5-5.1) 04/29/22 21:35 BUN 36 mg/dL (7-18) H 04/29/22 21:35 Creatinine 1.11 mg/dL (0.55-1.3) 04/29/22 21:35 Glucose 102 mg/dL (74-106) 04/29/22 21:35 Phosphorus 3.0 mg/dL (2.5-4.9) 04/30/22 01:49 Magnesium 1.9 mg/dL (1.8-2.4) 04/30/22 01:49 Triglycerides 63 mg/dL (<150) 04/30/22 01:49 Cholesterol 151 mg/dL (<200) 04/30/22 01:49 HDL Cholesterol 65 mg/dL (40-60) H 04/30/22 01:49 Cholesterol/HDL Ratio 2.32 04/30/22 01:49 Home Medications: Aspirin [Aspirin EC] 81 mg PO DAILY 04/30/22 Centrum Multivitamins 1 tab PO DAILY 04/30/22 Ergocalciferol (Vitamin D2) [Vitamin D2] 1,250 mcg PO DAILY 04/30/22 Ferrous Gluconate [Iron] 65 mg PO DAILY 04/30/22 Metoprolol Succinate [Toprol Xl*] 25 mg PO DAILY 04/30/22 NIFEdipine [Nifedipine ER] 1 tab PO DAILY 04/30/22 Olmesartan/Hydrochlorothiazide [Olmesartan-Hctz 40-12.5 mg Tab] 1 each PO DAILY 04/30/22 Atorvastatin Calcium [Lipitor] 80 mg PO BEDTIME #30 tab 05/01/22 Clopidogrel Bisulfate [Plavix*] 75 mg PO DAILY #30 tablet 05/01/22 New Medications: Atorvastatin Calcium [Lipitor] 80 mg PO BEDTIME #30 tab Clopidogrel Bisulfate [Plavix*] 75 mg PO DAILY #30 tablet Physician Discharge Instructions: OK TO DC IV AND DC HOME FOLLOW-UP WITH PRIMARY CARE PROVIDER IN 1-2 WEEKS FOLLOW-UP WITH Cardiology IN 1-2 WEEKS RETURN TO THE ER IF symptoms worsen CALL DR. BRIAN AT [phone] IF ANY QUESTIONS REGARDING HOSPITAL STAY. PLEASE CALL THE FLOOR AT [phone] IF ANY MEDICATION OR NURSING QUESTIONS. Diet: AHA Activity: Fall precautions Followup: Dawit Oliveira MD [ACTIVE - CAN ADMIT] - (Call to schedule appointment.) Maxim Ha MD [Primary Care Provider] - (Call to schedule appointment) Time spent managing pt's care (in minutes): 35
--- NOTE | 2022-05-03 00:45 | PN ---
Date of Progress Note: 05/01/2022 Ms. Narvaez had been admitted with non-STEMI. Dr. Freedman performed a heart catheterization on her on 04/30/2022. Overnight, she had no complaint. Her telemetry is normal. Her vital signs are stable. She is afebrile. Her right wrist catheterization entry site is intact without any hematoma and wit h good pulses. On the catheterization, she was found to have severe coronary artery disease. She canela d a 10%-20% left main stenosis. Her LAD had a heavily calcified proximal vessel and some mid diffuse disease 60%-70% and 70%-80% very long segment significant stenosis. Circumflex had 90% stenosis. R CA had 40% stenosis. She had a severe OM1 stenosis. Dr. Freedman plans a CSI atherectomy and shock wa ve atherectomy, possible PCI of the LAD as an outpatient. Her OM is small and will be treated medica lly. She can go home on aspirin, Plavix, beta dwayne, and statin. We will make arrangements for he r intervention as an outpatient in the near future. JOSE R/NEFTALY Voice ID: [id number] Report ID: [id number]
== END 2022-05-01 11:23 | disposition home or self-care (01) | DRG 282 ==
LOC: ER 17:24 → ERHOLD 23:22 → 2ND 23:25
PROVIDERS: ADMIT Hospitalist; ATTEND Hospitalist
PROC: B2011ZZ Plain Radiography of Multiple Coronary Arteries using Low Osmolar Contrast (ICD-10-PCS; principal; 2022-04-30)
DX: I21.4 Non-ST elevation (NSTEMI) myocardial infarction (principal); I25.119 Atherosclerotic heart disease of native coronary artery with unspecified angina pectoris; I10 Essential (primary) hypertension; I48.0 Paroxysmal atrial fibrillation; E78.5 Hyperlipidemia, unspecified; Z79.82 Long term (current) use of aspirin; Z20.822 Contact with and (suspected) exposure to COVID-19
CPT/HCPCS: 36415; 71045; 80048; 80061; 81003; 82550; 82553; 82947; 83735; 84100; 84443; 84484; 85025; 85730; 93005; 93306; 93454; 99285; C1893; J0360; J1644; J2250; J3010; J7030; J7040; Q9967; U0003

== ENCOUNTER 2023-01-05 12:14 | Emergency (ER) | payer OTHER ==
--- OUTSIDE RECORDS SUMMARY | 2023-01-05 12:21 | XMS REPORT | Continuity of Care Document ---
:1940 Author Organization [facility] t Address [address] [facility] [address] [place] [address] Care Team Providers Name Role Phone Francis Nj MD Primary Care Physician Salbador Bhatt Attending Clinician Unavailable Elan Freedman Attending Clinician Unavailable Ayesha Jameson MD Attending Clinician Calvin Carreon MD Attending Clinician Wilda Harvey NP Attending Clinician FRANCIS [place] Attending Clinician Unavailable DR. GEOFF Admitting Clinician Unavailable Maxim Ha Admitting Clinician Unavailable Physician, No Primary or Family Admitting Clinician UnavailAYESHA Amador Admitting Clinician Unavailable Payers Payer Name Policy Type Policy Number Effective Date Expiration Date S [facility] C1 [id number] Common SUPPLEMENT [facility] MEDICARE NOVITAS [id number] [facility] BANKERS LIFE C1 [id number] Common SUPPLEMENT [facility] MEDICARE NOVITAS MB [id number] [facility] - [facility] BANKERS LIFE C1 [id number] Common SUPPLEMENT [facility] [id number] Common [facility] Problems Condition Condition Condition Status Onset Resolution Last Treating Co mments Source Name Details Category Date Date Treatment Clinician Date 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 itis of [facility] [id number] Pain in Problem Active Common right knee [facility] Renal cyst Renal cyst Problem Active C ommon [facility] [id number] Sciatica, Problem Active Comm on left side [facility] [id number] Pain in Problem Active Comm on left knee [facility] [id number] Other Problem Active Common chronic [facility] pain [facility] [id number] Mass of Problem Active Comm on [id number] both [facility] adrenal - [facility] glands [facility] [id number] Right Problem Active Common renal mass [facility] [id number] Bladder Problem Active Commo n diverticul [facility] um [facility] [id number] Microscopi Problem Active Co mmon c Spirit hematuria 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 [facility] Allergies, Adverse Reactions, Alerts Allergy Allergy Status Severity Reaction(s) Onset Inactive Treating Comm ents Source Name Type Date Date Clinician No Known DA Active U [facility] Allergie 7-11 Clear s 00:00: Wong 00 [facility] Social History Social Habit Start Date Stop Date Quantity Comments Source History of [facility] - Tobacco Use [facility] Alcohol intake 2022-01-30 2022-01-30 Ex-drinker [facility] 00:00:00 00:00:00 (finding) Hospital Tobacco use and 2022-01-28 2022-01-28 Smokeless tobacco Me [facility] exposure 00:00:00 00:00:00 non-user Hospital Sex Assigned At [birth year] [facility] 00:00:00 00:00:00 Hospital Smoking Status Start Date Stop Date Source Never Smoker [facility] Medications Ordered Filled Start Stop Current Ordering Indication Dosage Frequency Signature Comments Components Source Medication Medication Date Date Medication? Clinician (SIG) Name Name aspirin 81 Yes 1{tbl} 1 tablet. [facility] mg chewable 3-30 st tablet 13:08: Hospita 37 l losartan-hy Yes 1{tbl} 1 tablet. [facility] drochloroth 3-[address] [facility] iazide 13:08: Hospita (HYZAAR) 37 l 100-12.5 mg per tablet multivitami Yes 1{tbl} QD Take 1 Me thodi n tablet 3-[address] 13:08: mouth Hospita 37 daily. l ferrous Yes 325mg QD Take 325 Metho di sulfate 325 3-[address] (65 FE) MG 13:08: mouth Hospit a tablet 37 daily with l breakfast. atorvastati Yes 20mg QD Take 20 mg [facility] n (LIPITOR) 1-[address] 20 mg 00:00: daily. Hospita tablet 00 l ergocalcife 2020-11 Yes TAKE 1 Meth yulia rol 2-[address] (VITAMIN 00:00: MOUTH ONCE Hos harika D2) 50,000 00 A WEEK FOR l unit 12 WEEKS capsule NIFEdipine 2020-11 Yes 60mg QD Take 60 mg M ethodi CC (ADALAT 1-[address] CC) 60 MG 00:00: daily. Hospit a 24 hr 00 l tablet metoprolol 2020-11 Yes [facility] succinate 1-04 st XL 00:00: Hospita (TOPROL-XL) 00 l 50 mg 24 hr tablet Iron 28 MG Iron 28 MG 2017-11 No 1{table QD Iron 28 MG 0-18 t} 00:00: 00 Mobic 7.5 Mobic 7.5 2017-11 No 1{table QD Mobic 7.5 MG MG 0-18 t} MG 00:00: 00 Mobic 7.5 Mobic 7.5 2017-11 No 1{table QD Mobic 7.5 MG MG 0-18 t} MG 00:00: 00 Iron 28 MG Iron 28 MG 2017-11 No 1{table QD Iron 28 MG 0-18 t} 00:00: 00 Iron 28 MG Iron 28 MG 2017-11 No 1{table QD Iron 28 MG 0-18 t} 00:00: 00 Mobic 7.5 Mobic 7.5 2017-11 No 1{table QD Mobic 7.5 MG MG 0-18 t} MG 00:00: 00 Mobic 7.5 Mobic 7.5 2017-11 No 1{table QD Mobic 7.5 MG MG 0-18 t} MG 00:00: 00 Iron 28 MG Iron 28 MG 2017-11 No 1{table QD Iron 28 MG 0-18 t} 00:00: 00 Losartan Losartan No 1{table QD Losartan Potassium-H Potassium-H t} Potassium- CTZ CTZ HCTZ 100-12.5 MG 100-12.5 MG 100-12.5 MG Alendronate Alendronate No 1{table Alendronat Sodium 70 Sodium 70 t} e Sodium MG MG 70 MG Centrum - Centrum - No Centrum - Metoprolol- Metoprolol- No 1{table QD Metoprolol HCTZ ER HCTZ ER t} -HCTZ ER 50-12.5 MG 50-12.5 MG 50-12.5 MG NIFEdipine NIFEdipine No 1{table QD NIFEdipine ER 60 MG ER 60 MG t_on_an ER 60 MG _empty_ stomach } Aspirin 81 Aspirin 81 No 1{table QD Aspirin 81 MG MG t} MG atorvastati atorvastati No atorvastat n 20mg n 20mg in 20mg Centrum - Centrum - No Centrum - Metoprolol- Metoprolol- No 1{table QD Metoprolol HCTZ ER HCTZ ER t} -HCTZ ER 50-12.5 MG 50-12.5 MG 50-12.5 MG Losartan Losartan No 1{table QD Losartan Potassium-H Potassium-H t} Potassium- CTZ CTZ HCTZ 100-12.5 MG 100-12.5 MG 100-12.5 MG Alendronate Alendronate No 1{table Alendronat Sodium 70 Sodium 70 t} e Sodium MG MG 70 MG Aspirin 81 Aspirin 81 No 1{table QD Aspirin 81 MG MG t} MG NIFEdipine NIFEdipine No 1{table QD NIFEdipine ER 60 MG ER 60 MG t_on_an ER 60 MG _empty_ stomach } atorvastati atorvastati No atorvastat n 20mg n 20mg in 20mg atorvastati atorvastati No atorvastat n 20mg n 20mg in 20mg Losartan Losartan No 1{table QD Losartan Potassium-H Potassium-H t} Potassium- CTZ CTZ HCTZ 100-12.5 MG 100-12.5 MG 100-12.5 MG Metoprolol- Metoprolol- No 1{table QD Metoprolol HCTZ ER HCTZ ER t} -HCTZ ER 50-12.5 MG 50-12.5 MG 50-12.5 MG Aspirin 81 Aspirin 81 No 1{table QD Aspirin 81 MG MG t} MG Alendronate Alendronate No 1{table Alendronat Sodium 70 Sodium 70 t} e Sodium MG MG 70 MG Centrum - Centrum - No Centrum - NIFEdipine NIFEdipine No 1{table QD NIFEdipine ER 60 MG ER 60 MG t_on_an ER 60 MG _empty_ stomach } Aspirin 81 Aspirin 81 No 1{table QD Aspirin 81 MG MG t} MG Alendronate Alendronate No 1{table Alendronat Sodium 70 Sodium 70 t} e Sodium MG MG 70 MG atorvastati atorvastati No atorvastat n 20mg n 20mg in 20mg NIFEdipine NIFEdipine No 1{table QD NIFEdipine ER 60 MG ER 60 MG t_on_an ER 60 MG _empty_ stomach } Losartan Losartan No 1{table QD Losartan Potassium-H Potassium-H t} Potassium- CTZ CTZ HCTZ 100-12.5 MG 100-12.5 MG 100-12.5 MG Centrum - Centrum - No Centrum - Metoprolol- Metoprolol- No 1{table QD Metoprolol HCTZ ER HCTZ ER t} -HCTZ ER 50-12.5 MG 50-12.5 MG 50-12.5 MG Vital Signs Vital Name Observation Time Observation Value Comments Source blood pressure 2021-10-08 10:15:00 166 mm[Hg] [facility] - systolic [facility] blood pressure 2021-10-08 10:15:00 88 mm[Hg] [facility] - diastolic [facility] height 2021-10-08 10:15:00 59 [in_i] Common S pirit - [facility] weight 2021-10-08 10:15:00 180 [lb_av] Common S pirit [facility] temperature 2021-10-08 10:15:00 97.3 [degF] Common S pirit [facility] bmi 2021-10-08 10:15:00 36.35 kg/m2 [facility] oximetry 2021-10-08 10:15:00 95 % Common S pirit [facility] height 2021-09-11 10:30:00 59 [in_i] Common S pirit [facility] weight 2021-09-11 10:30:00 182 [lb_av] Common [facility] temperature 2021-09-11 10:30:00 98.3 [degF] Common S pirit [facility] bmi 2021-09-11 10:30:00 36.76 kg/m2 Common S pirit [facility] oximetry 2021-09-11 10:30:00 99 % [facility] 2021-09-11 10:30:00 132 mm[Hg] [facility] - systolic [facility] blood pressure 2021-09-11 10:30:00 68 mm[Hg] [facility] - diastolic [facility] height 2021-05-08 09:00:00 59 [in_i] Common S pirit [facility] weight 2021-05-08 09:00:00 182 [lb_av] Common S pirit [facility] temperature 2021-05-08 09:00:00 99.3 [degF] Common [facility] bmi 2021-05-08 09:00:00 36.76 kg/m2 Common [facility] oximetry 2021-05-08 09:00:00 98 % Common S pirit [facility] blood pressure 2021-05-08 09:00:00 133 mm[Hg] [facility] - systolic [facility] blood pressure 2021-05-08 09:00:00 76 mm[Hg] [facility] - diastolic [facility] height 2021-04-17 10:40:00 59 [in_i] [facility] weight 2021-04-17 10:40:00 184.2 [lb_av] [facility] temperature 2021-04-17 10:40:00 96.8 [degF] Common [facility] bmi 2021-04-17 10:40:00 37.2 kg/m2 [facility] oximetry 2021-04-17 10:40:00 93 % [facility] blood pressure 2021-04-17 10:40:00 131 mm[Hg] [facility] - systolic [facility] blood pressure 2021-04-17 10:40:00 73 mm[Hg] [facility] - diastolic [facility] Systolic blood 2022-01-28 17:38:00 133 mm[Hg] [facility] pressure Diastolic blood 2022-01-28 17:38:00 69 mm[Hg] [facility] pressure Heart rate 2022-01-28 17:38:00 75 /min [facility] Body temperature 2022-01-28 17:38:00 36.83 Demetria [facility] Respiratory rate 2022-01-28 17:38:00 15 /min [facility] Oxygen saturation in 2022-01-28 17:38:00 100 /min [facility] Arterial blood by Pulse oximetry Body height 2022-01-28 16:14:00 149.9 cm [facility] Body weight 2022-01-28 16:13:00 80.105 kg [facility] BMI 2022-01-28 16:13:00 35.67 kg/m2 [facility] Procedures Procedure Date / Time Performed Performing Clinician [facility] e SURGICAL PATHOLOGY 2022-01-28 20:40:00 Ayesha Jameson [facility] REQUEST AMYLASE LEVEL, [facility] 2022-01-28 17:01:00 Ayesha Jameson [facility] FLUID CEA, [facility] FLUID 2022-01-28 17:01:00 [facility] 2022-01-28 16:56:00 [facility] US UPPER GI TRACT, 2022-01-28 16:42:00 JamesonAyesha flanagan [facility] ENDOSCOPIC Plan of Care Planned Activity Planned Date Details Comments Source Future Scheduled 2022-10-18 COVID-19 VACCINE (#1) [facility] Test 03:40:45 [code = COVID-19 VACCINE (#1)] Future Scheduled 2022-10-18 SHINGLES VACCINES (1 Met [facility] Test 03:40:45 of 2) [code = SHINGLES VACCINES (1 of 2)] Future Scheduled 2022-10-18 65+ [facility]OCOCCAL [facility] Test 03:40:45 VACCINE (1 - PCV) [code = 65+ PNEUMOCOCCAL VACCINE (1 - PCV)] Future Scheduled 2022-10-18 INFLUENZA VACCINE [facility] Test 03:40:45 [code = INFLUENZA VACCINE] Encounters Start End Encounter Admission Attending Care Care Encounter Source Date/Time Date/Time Type Type Clinicians Facility Department ID 2022-10-15 Outpatient Bhatt, STLC [facility] [id number] Common 12:45:00 [facility] [id number] [facility] 2022-05-13 Inpatient EL Raslilliam, HCACL [facility] [id number] [facility] 13:00:00 Elan [id number] [facility] 2021-11-26 Outpatient STLMLC [facility] [id number] Common 13:14:17 [id number] [facility] 2022-05-13 2022-05-13 Outpatient EL Raslan, HCACL [facility] [id number] [facility] 13:48:00 13:48:00 Elan 99 [facility] 2022-01-28 2022-01-28 [facility] Effie, 1.2.840.1 [id number] [facility] 10:22:00 13:08:00 Encounter Ayesha Collier [id number] 3.430.2.7 Hospit a .3.009892 l .8 2022-01-282022-01-28 Surgery Effie 1.2.840.1 [id number] [facility] 12:00:00 13:00:[address] 3.430.2.7 Hospit a .3.393345 l .8 2022-01-28 2022-01-28 Anesthesia Calvin Carreon 1.2.840.1 [id number] [facility] 11:42:00 12:12:00 Event Wilda Harvey [address]62.1.[address] 3.430.2.7 Hospit a .3.882862 l .8 2022-01-28 2022-01-28 Travel 1.2.840.1 1.2.782.165 [id number] [facility] 00:00:00 00:00:[address] 3.430.2.7 0.2.7.3.698 Ho spita .3.978916 084.8 l .8 2022-01-28 2022-01-28 [id number] [place] 00:00:00 00:00:[address] 2022-01-21 2022-01-21 Travel 1.2.840.1 1.2.198.971 [id number] [facility] 00:00:00 00:00:[address] 3.430.2.7 0.2.7.3.698 Ho spita .3.251692 084.8 l .8 2021-12-04 2021-12-04 Outpatient VANESAAAMNDAMIGUELITO [facility] [id number] [place] 00:00:00 00:00:[address] FRANCIS [address] 2021-10-08 2021-10-08 OFFICE STLMLC STLC [id number] Co mmon 00:00:00 00:00:00 VISIT Spirit ESTAB PT - CHI LEVEL 4 [facility] 2021-09-11 2021-09-11 OFFICE STLC STLC [id number] Co mmon 00:00:00 00:00:00 VISIT Spirit QUINTON PT - CHI LEVEL 2 [facility] 2021-05-08 2021-05-08 OFFICE STLMLC STLMLC [id number] Co mmon 00:00:00 00:00:00 VISIT Spirit QUINTON PT - CHI LEVEL 5 [facility] 2021-04-17 2021-04-17 OFFICE STLMLC STLMLC [id number] Co mmon 00:00:00 00:00:00 VISIT ALBERTO Roland it PT LEVEL 3 - CHI [facility] Results Test Description Test Time Test Comments Results Result Comments Source BASIC METABOLIC PANEL 2022-05-13 14:51:00 Test Item Value Reference Range Interpretation Comme nts SODIUM (test code = NA) 139 mEq/L 134-147 N POTASSIUM (test code = K) 4.5 mEq/L 3.4-5.0 N CHLORIDE (test code = CL) 108 mEq/L 100-108 N CARBON DIOXIDE (test code = CO2) 24 mEq/l 21-33 N ANION GAP (test code = GAP) 12 0-20 N GLUCOSE (test code = GLU) 156 mg/dL 70-110 H BLOOD UREA NITROGEN (test code = 30 mg/dL 7-18 H BUN) GLOMERULAR FILTRATION RATE (test 53.1 70-80 L Units of measure = ml/min/1.73 code = GFR) m2 CREATININE (test code = CREAT) 1.0 mg/dL 0.6-1.3 N CALCIUM (test code = CA) 9.3 mg/dL 8.0-10.5 N CBC W/AUTO [id number] 14:32:00 Test Item Value Reference Range Interpretation Comments WHITE BLOOD CELL (test code = 9.6 x10 3/uL 4.5-11.0 N WBC) RED BLOOD CELL (test code = 3.23 x10 6/uL 3.54-5.02 L RBC) HEMOGLOBIN (test code = HGB) 9.6 g/dL 11.0-15.0 L HEMATOCRIT (test code = HCT) 30.4 % 33.0-45.0 L MEAN CELL VOLUME (test code = 94.1 fL 81.0-99.0 N MCV) MEAN CELL HGB (test code = MCH) 29.7 pg 27.0-33.0 N MEAN CELL HGB CONCETRATION 31.6 g/dL 33.0-37.0 L (test code = MCHC) RED CELL DISTRIBUTION WIDTH CV 14.8 % 11.5-14.5 H (test code = RDW) RED CELL DISTRIBUTION WIDTH SD 50.9 fL 37.0-54.0 N (test code = RDW-SD) PLATELET COUNT (test code = 253 x10 3/uL 150-400 N PLT) MEAN PLATELET VOLUME (test code 10.5 fL 7.0-9.0 H = MPV) NEUTROPHIL % (test code = NT%) 79.9 % 56.0-77.0 H IMMATURE GRANULOCYTE % (test 0.3 % 0.0-2.0 N code = IG%) LYMPHOCYTE % (test code = LY%) 14.0 % 14.0-32.0 N MONOCYTE % (test code = MO%) 5.3 % 4.8-9.0 N EOSINOPHIL % (test code = EO%) 0.3 % 0.3-3.7 N BASOPHIL % (test code = BA%) 0.2 % 0.0-2.0 N NUCLEATED RBC % (test code = 0.0 % 0-0 N NRBC%) NEUTROPHIL # (test code = NT#) 7.68 x10 3/uL 2.0-7.6 H IMMATURE GRANULOCYTE # (test 0.03 x10 3/uL 0.00-0.03 N code = IG#) LYMPHOCYTE # (test code = LY#) 1.35 x10 3/uL 1.0-3.8 N MONOCYTE # (test code = MO#) 0.51 x10 3/uL 0.1-0.8 N EOSINOPHIL # (test code = EO#) 0.03 x10 3/uL 0.0-0.2 N BASOPHIL # (test code = BA#) 0.02 x10 3/uL 0.0-0.2 N NUCLEATED RBC # (test code = 0.00 x10 3/uL 0.0-0.1 N NRBC#) MANUAL DIFF REQUIRED (test code NO = MDIFF) COAGULATION TIME [id number] 10:47:00 Test Item Value Reference Range Interpretation Comments COAGULATION TIME 254 SECONDS 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 b y 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) at [facility] COAGULATION TIME [id number] 10:15:00 Test Item Value Reference Range Interpretation Comments COAGULATION TIME 214 SECONDS Performed b y 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) at [facility] [id number] 09:59:00 Test Item Value Reference Range Interpretation Comments ACT-ISTAT (test code 317 SEC 74-137 H Perform ed by certified = GRAYSON) diesel roller operator at [facility] BASIC METABOLIC [id number] 14:42:00 Test Item Value Reference Range Interpretation Comments SODIUM (test code = NA) 139 mEq/L 134-147 N POTASSIUM (test code = 3.5 mEq/L 3.4-5.0 N K) CHLORIDE (test code = 108 mEq/L 100-108 N CL) CARBON DIOXIDE (test 22 mEq/l 21-33 N code = CO2) ANION GAP (test code = 12 0-20 N GAP) GLUCOSE (test code = 94 mg/dL 70-110 N GLU) BLOOD UREA NITROGEN 25 mg/dL 7-18 H (test code = BUN) GLOMERULAR FILTRATION 47.6 70-80 L Units of measure = RATE (test code = GFR) ml/mi n/1.73 m2 CREATININE (test code = 1.1 mg/dL 0.6-1.3 N CREAT) CALCIUM (test code = 9.5 mg/dL 8.0-10.5 N CA) PROTHROMBIN [id number] 14:34:00 Test Item Value Reference Range Interpretation Comments PROTHROMBIN TIME 10.8 SECONDS 9.3-12.9 N PATIENT (test code = PTP) INTERNATIONAL NORMAL 1.0 0.8-1.2 N TARGET INR BY RATIO (test code = INDICATIO N Indication INR) INR1. Prophylax is of venous thrombos is 2.0 - 3.0 (orthoped ic surgery), Proph ylaxis of venous throm bosis (other than hig h-risk surgery), Treat ment of Deep Vein Thrombosis/Pulm onary Embolism, Preve ntion of systemic emb olism - Tissue heart va lves, Acute Myocardia l Infarction (to prevent systemic emboli sm), Valvular heart disease, Atrial Fibrillation, Bileaflet mecha nical valve in aortic position.2. Mec hanical prosthetic valv es (high risk), 2. 5 - 3.5 Presence of Lup us Anticoagulant o r Antiphospholipi d Antibodies, Pre vention of systemic emb olism - Acute Myocardia l Infarction (to prevent recurrent infar ct). CBC W/AUTO [id number] 14:29:00 Test Item Value Reference Range Interpretation Comments WHITE BLOOD CELL (test code = 8.4 x10 3/uL 4.5-11.0 N WBC) RED BLOOD CELL (test code = 3.93 x10 6/uL 3.54-5.02 N RBC) HEMOGLOBIN (test code = HGB) 11.8 g/dL 11.0-15.0 N HEMATOCRIT (test code = HCT) 36.3 % 33.0-45.0 N MEAN CELL VOLUME (test code = 92.4 fL 81.0-99.0 N MCV) MEAN CELL HGB (test code = MCH) 30.0 pg 27.0-33.0 N MEAN CELL HGB CONCETRATION 32.5 g/dL 33.0-37.0 L (test code = MCHC) RED CELL DISTRIBUTION WIDTH CV 14.7 % 11.5-14.5 H (test code = RDW) RED CELL DISTRIBUTION WIDTH SD 50.4 fL 37.0-54.0 N (test code = RDW-SD) PLATELET COUNT (test code = 246 x10 3/uL 150-400 N PLT) MEAN PLATELET VOLUME (test code 10.3 fL 7.0-9.0 H = MPV) NEUTROPHIL % (test code = NT%) 70.5 % 56.0-77.0 N IMMATURE GRANULOCYTE % (test 0.2 % 0.0-2.0 N code = IG%) LYMPHOCYTE % (test code = LY%) 19.7 % 14.0-32.0 N MONOCYTE % (test code = MO%) 8.0 % 4.8-9.0 N EOSINOPHIL % (test code = EO%) 1.4 % 0.3-3.7 N BASOPHIL % (test code = BA%) 0.2 % 0.0-2.0 N NUCLEATED RBC % (test code = 0.0 % 0-0 N NRBC%) NEUTROPHIL # (test code = NT#) 5.91 x10 3/uL 2.0-7.6 N IMMATURE GRANULOCYTE # (test 0.02 x10 3/uL 0.00-0.03 N code = IG#) LYMPHOCYTE # (test code = LY#) 1.65 x10 3/uL 1.0-3.8 N MONOCYTE # (test code = MO#) 0.67 x10 3/uL 0.1-0.8 N EOSINOPHIL # (test code = EO#) 0.12 x10 3/uL 0.0-0.2 N BASOPHIL # (test code = BA#) 0.02 x10 3/uL 0.0-0.2 N NUCLEATED RBC # (test code = 0.00 x10 3/uL 0.0-0.1 N NRBC#) MANUAL DIFF REQUIRED (test code NO = MDIFF) - XR CHEST 2 [id number] 00:00:00 [facility] : 1940 Sex: F FAX: Elan Wilcox MD [phone] [place]: St: PRE Name: YOSELIN NARVAEZ [facility] : 1940 Age/S: 81/F [address] [place] [address] Unit #: [id number] Loc: [place] [address] Phys: Elan Freedman MD Acct: [id number] Dis Date: Status: PRE SDC PHONE #: [phone] Exam Date: 05/11/2022 152 FAX #: [phone] Reason: PREOP EXAMS: CPT CODE: [id number] XR CHEST 2 V [id number] PROCEDURE INFORMATION: Exam: XR Chest Exam date and time: 05/11/2022 2:33 PM Age: 81 years old Clinical indication: Other: Preop TECHNIQUE: Imaging protocol: Radiologic exam of the chest. Views: 2 views. PA and Lateral COMPARISON: No relevant prior studies available. FINDINGS: Lungs: No consolidation. Pleural spaces: No pleural effusion.Heart/Mediastinum: The heart and vascular markings are within limits of normal. There is atherosclerotic calcification of the aorta. Bones/joints: No gross acute findings. IMPRESSION: No acute cardiopulmonary findings at 1551 Reported and signed by: Eleni Bhatt D.O. CC: Elan Freedman MD Technologist: RT Gissel(R) Trnscrd Date/Time/By: 05/11/2022 (155) : By: [email or web address] Orig Print D/T: S: 05/11/2022 (1551) PAGE 1 Signed ReportSurgical pathology [id number] 18:01:36 Test Item Value Reference Range Interpretation Comments Case number (test code = [id number]) Surgical pathology See link below for report (test code = PDF Lab Report 2255) Result status (test code This is Final Report = [id number]) [id number] [facility] [id number] 15:25:51 Test Item Value Reference Range Interpretation Comments Case number (test code = [id number]) Cytology See link below for (non-gynecological) PDF Lab Report report (test code = 1178) Result status (test code This is Final Report = [id number]) for [id number] [facility], misc [id number] 00:10:00 Test Item Value Reference Range Interpretation Comments Fluid type (test ASPIRATE code = 05169-7) Amylase, fluid U/L The reference interval(s) (test code = and other metho d 1795-4) performance spe cifications have not been e stablished for this body f luid. The test results mu st be integrated into the clinical contex t for interpretation. This test has been modifi ed from the investor relations manager?s instructions. T he performance joyce racteristics were determined by Jose Angel dempsey in a manner consiste nt with CLIA requirements. T his test has not been cleare d or approved by the U.S. Food and Drug Admini stration. [facility] [id number] 19:34:00 Test Item Value Reference Range Interpretation Comments Fluid type (test ASPIRATE code = 85719-7) CEA, fluid (test 160.2 ng/mL The referen ce interval(s) code = 67012-9) and other me thod performance spe cifications have not been e stablished for this body f luid. The test results mu st be integrated into the clinical contex t for interpretation. This test has been modifi ed from the investor relations manager?s instructions. T he performance characteristics were determined by Fina dempsey in a manner consiste nt with CLIA requiremen ts. This test has not be en cleared or approved by the [place] Food and Drug Administration. [facility]
--- NOTE | 2023-01-05 13:20 | RAD REPORT ---
EXAM DESCRIPTION: US - Extremity Venous Uni Ltd - 01/05/2023 1:12 pm CLINICAL HISTORY: Pain;Swelling Leg swelling and edema. COMPARISON: No comparisons FINDINGS: Left lower extremity venous system was interrogated with Doppler technique. Normal flow, c ompressibility and augmentation was noted. There is no DVT present. IMPRESSION: No evidence of left lower extremity deep venous thrombosis.
[2023-01-05 14:03] VITALS: BP 107/72; TEMP 98.4; O2SAT 100
--- NOTE | 2023-01-22 14:18 | ER ---
Nurse's Notes [facility] Name: Shelby Narvaez Age: 82 yrs Sex: Female : 1940 Arrival Date: 01/05/2023 Time: 12:20 Bed DIS2 Private MD: Diagnosis: Pain in left lower leg Presentation: 01/05 12:39 Chief complaint: Patient states: Swelling \T\ pain to lower left leg X 3 days. ld1 Coronavirus screen: At this time, the client does not indicate any symptoms associated with coronavirus-19. Ebola Screen: No symptoms or risks identified at this time. Initial Sepsis Screen: Does the patient meet any 2 criteria? No. Patient's initial sepsis screen is negative. Does the patient have a suspected source of infection? No. Patient's initial sepsis screen is negative. Risk Assessment: Do you want to hurt yourself or someone else? Patient reports no desire to harm self or others. Onset of symptoms was January 05, 2023 at 12:40. 12:39 Method Of Arrival: Wheelchair ld1 12:39 Acuity: GEOFFREY 3 ld1 Triage Assessment: 12:40 General: Appears in no apparent distress. comfortable, Behavior is calm, cooperative, ld1 appropriate for age. Pain: Complains of pain in left leg Pain does not radiate. Pain currently is 7 out of 10 on a pain scale. Quality of pain is described as throbbing. EENT: No signs and/or symptoms were reported regarding the EENT system. Neuro: Level of Consciousness is awake, alert, obeys commands, Oriented to person, place, time, situation. Cardiovascular: Capillary refill < 3 seconds Patient's skin is warm and dry. Respiratory: Airway is patent Respiratory effort is even, unlabored. GI: Abdomen is round non-distended. : No signs and/or symptoms were reported regarding the genitourinary system. Derm: No signs and/or symptoms reported regarding the dermatologic system. Musculoskeletal: No signs and/or symptoms reported regarding the musculoskeletal system. Historical: - Allergies: 12:40 No Known Allergies; ld1 - Home Meds: 12:40 Plavix 75 mg Oral tablet daily [Active]; ld1 - PMHx: 12:40 Atrial Fib; Anemia; Hypertension; Hypercholesterolemia; ld1 - Immunization history:: Adult Immunizations up to date. - Social history:: Smoking status: Patient denies any tobacco usage or history of. Patient/guardian denies using alcohol. Screenin:44 [facility] ED Fall Risk Assessment (Adult) History of falling in the last 3 months, iw including since admission. Abuse screen: Denies threats or abuse. Denies injuries from another. Nutritional screening: No deficits noted. Tuberculosis screening: No symptoms or risk factors identified. Vital Signs: 12:39 BP 107 / 72; Pulse 91; Resp 18; Temp 98.4(TE); Pulse Ox 100% on R/A; Weight 74.84 kg; ld1 Height 5 ft. 2 in. ; Pain 7/10; 12:39 Body Mass Index 30.18 (74.84 kg, 157.48 cm) ld1 12:39 Pain Scale: Adult ld1 ED Course: 12:20 Patient arrived in ED. rg4 12:32 Flex Ulrich DO is Attending Physician. ms3 12:40 Triage completed. ld1 12:40 Arm band placed on right wrist. ld1 13:33 Salbador Bhatt DO is Referral Physician. ms3 13:37 Lizzette Cortes, RN is Primary Nurse. iw 13:44 No provider procedures requiring assistance completed. Patient did not have IV access iw during this emergency room visit. Administered Medications: No medications were administered Medication: 13:44 VIS not applicable for this client. iw Outcome: 13:33 Discharge ordered by MD. ms3 13:44 Discharged to home via wheelchair, with family. iw 13:44 Condition: good 13:44 Discharge instructions given to patient, family, Instructed on discharge instructions, follow up and referral plans. Demonstrated understanding of instructions, follow-up care. 13:44 Patient left the ED. iw Signatures: Lizzette Cortes, RUDY RN Sheron Samano rg4 Flex Ulrich DO DO ms3 Helga Matute RN RN ld1
--- NOTE | 2023-01-22 14:18 | EDPHYS ---
Physician Documentation [facility] Name: Shelby Narvaez Age: 82 yrs Sex: Female : 1940 Arrival Date: 01/05/2023 Time: 12:20 Bed DIS2 Private MD: ED Physician Flex Ulrich HPI: 01/05 13:08 This 82 yrs old Black Female presents to ER via Wheelchair with complaints of Leg ms3 Swelling. 13:08 82-year-old female with past medical history of atrial fibrillation, anemia, ms3 hypertension, hypercholesterolemia presents for left leg swelling for 2 days. Patient denies pain currently in the leg. Patient states she had severe pain in her leg this morning. Patient states she has taken Tylenol which relieved her pain.. Historical: - Allergies: 12:40 No Known Allergies; ld1 - Home Meds: 12:40 Plavix 75 mg Oral tablet daily [Active]; ld1 - PMHx: 12:40 Atrial Fib; Anemia; Hypertension; Hypercholesterolemia; ld1 - Immunization history:: Adult Immunizations up to date. - Social history:: Smoking status: Patient denies any tobacco usage or history of. Patient/guardian denies using alcohol. ROS: 13:08 Constitutional: Negative for fever, and chills. Neck: Negative for injury, pain, and ms3 swelling, Cardiovascular: Negative for chest pain, and palpitations. Respiratory: Negative for shortness of breath, cough, wheezing, and pleuritic chest pain, Abdomen/GI: Negative for abdominal pain, nausea, vomiting, diarrhea, and constipation. 13:08 MS/extremity: Positive for pain, of the left leg. Exam: 13:08 Constitutional: This is a well developed, well nourished patient who is awake, alert, ms3 and in no acute distress. Head/Face: Normocephalic, atraumatic. Neck: Trachea midline, no cervical lymphadenopathy. Supple, full range of motion without nuchal rigidity, or vertebral point tenderness. No Meningismus. Chest/axilla: Normal chest wall appearance and motion. Nontender with no deformity. Cardiovascular: Regular rate and rhythm with a normal S1 and S2. No gallops, murmurs, or rubs. Normal PMI, no JVD. No pulse deficits. Respiratory: Lungs have equal breath sounds bilaterally, clear to auscultation and percussion. No rales, rhonchi or wheezes noted. No increased work of breathing, no retractions or nasal flaring. Abdomen/GI: Soft, non-tender, with normal bowel sounds. No distension or tympany. No guarding or rebound. No evidence of tenderness throughout. Skin: Warm, dry with normal turgor. Normal color with no rashes, no lesions, and no evidence of cellulitis. 13:08 Musculoskeletal/extremity: Extremities: noted in the left leg: pain, tenderness. Vital Signs: 12:39 BP 107 / 72; Pulse 91; Resp 18; Temp 98.4(TE); Pulse Ox 100% on R/A; Weight 74.84 kg; ld1 Height 5 ft. 2 in. ; Pain 7/10; 12:39 Body Mass Index 30.18 (74.84 kg, 157.48 cm) ld1 12:39 Pain Scale: Adult ld1 MDM: 13:07 Patient medically screened. ms3 13:08 Differential diagnosis: DVT vs MSK pain. ms3 16:23 Data reviewed: vital signs, nurses notes, radiologic studies, ultrasound. Historians ms3 other than the Patient: Daughter/Son: Patient's daughter. Care significantly affected by the following chronic conditions: Hypertension, Hyperlipidemia, atrial fibrillation, anemia. Counseling: I had a detailed discussion with the patient and/or guardian regarding: the historical points, exam findings, and any diagnostic results supporting the discharge/admit diagnosis, radiology results, the need for outpatient follow up, to return to the emergency department if symptoms worsen or persist or if there are any questions or concerns that arise at home. ED course: Discussed ultrasound images with patient and her daughter. Patient to follow-up with primary care physician in 2 to 3 days. Patient's daughter understands and agrees with plan. All questions were answered. Return precautions discussed include worsening symptoms, or any other concerns.. 01/05 12:40 Order name: Extremity Venous Uni Ltd US ms3 01/05 13:21 Order name: US; Complete Time: 13:27 EDMS 01/05 13:27 Interpretation: No acute disease. ms3 Administered Medications: No medications were administered Disposition Summary: 01/05/23 13:33 Discharge Ordered Location: Home ms3 Condition: Stable ms3 Diagnosis - Pain in left lower leg ms3 Followup: ms3 - With: Salbador Bhatt DO - When: 2 - 3 days - Reason: Recheck today's complaints Discharge Instructions: - Discharge Summary Sheet ms3 - Musculoskeletal Pain ms3 Forms: - Medication Reconciliation Form ms3 - Thank You Letter ms3 - Antibiotic Education ms3 - Prescription Opioid Use ms3 Signatures: Dispatcher [employer] Flex Zamudio DO DO ms3 Helga Matute, RN RN ld1
== END 2023-01-05 13:44 | disposition home or self-care (01) ==
LOC: ER 12:14
DX: M79.662 Pain in left lower leg (principal); Z79.01 Long term (current) use of anticoagulants
CPT/HCPCS: 93971; 99281

== ENCOUNTER 2024-04-11 10:30 | Day surgery (SDC) | payer OTHER ==
[2024-04-07 13:04] LABS: Absolute Eosinophils 0.1 K/uL (0-0.5); Absolute Lymphocytes (CBC) 1.8 K/uL (0.7-4.9); Absolute Monocytes 0.6 K/uL (0.1-1.3); Absolute Neutrophil 3.8 K/uL (1.8-8.0); Basophils % 0.6 % (0-1.3); Eosinophils % 1.4 % (0-4.4); Hematocrit 35.3 % (36.0-45.0); Hemoglobin 11.2 g/dL (12.0-15.0); Lymphocytes % 27.9 % (15.3-44.8); MCH 29.2 pg (27.0-35.0); MCHC 31.8 g/dL (32.0-36.0); MCV 91.8 fL (80-100); MPV 8.2 fL (7.6-11.3); Monocytes % 10.2 % (3.3-12.3); Neutrophils % 59.9 % (41.7-73.7); Platelets 265 thou/uL (152-406); RBC Red Blood Cell Count 3.85 M/uL (3.86-4.86); Red Cell Distribution Width 15.3 % (12.1-15.2)
[2024-04-07 13:11] LABS: PT Prothrombin Time 10.3 SECONDS (9.5-12.5); Protime INR 0.93
[2024-04-07 13:20] LABS: Anion Gap 6.9 mEq/L (5.0-15.0); Potassium 3.9 mEq/L (3.5-5.1)
--- NOTE | 2024-04-07 13:38 | RAD REPORT ---
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 Lungs: No evidence of edema or pneumonia. Pleural: No significant pleural effusions or pneumothorax. Cardiac: Mild cardiomegaly. Mediastinum: Within normal limits. Bones: No acute fractures. Other: None IMPRESSION: No acute cardiopulmonary disease.
--- NOTE | 2024-04-10 12:07 | EKG ---
Test Date: 2024-04-07 Test Time: 12:52:55 Addiction Social Worker: [place] MEASUREMENT RESULTS: Intervals: Rate: 65 MN: 138 QRSD: 110 QT: 422 QTc: 438 [place]: P: 58 MN: 138 QRS: -21 T: 259 INTERPRETIVE STATEMENTS: Normal sinus rhythm Moderate voltage criteria for LVH, may be normal variant Nonspecific ST and T wave abnormality Abnormal ECG Compared to ECG 04/29/2022 22:38:45 Left ventricular hypertrophy now present ST (T wave) deviation now present Sinus arrhythmia no longer present Electronically Signed On 04-10-24 12:04:24 CDT by Morales Chacon
[2024-04-11 11:46] VITALS: O2SAT 100
[2024-04-11] MEDS ORDERED: LIDOCAINE 1% 20 ML MDV ONE (12:17)
[2024-04-11] MEDS ORDERED: HEPA 1000U/500MLS 2,000 UNIT/1,000 ML BAG IV ONE (12:17)
[2024-04-11] MEDS ORDERED: MIDAZOLAM HCL 2 MG/2 ML INJ ONE (12:18)
[2024-04-11] MEDS ORDERED: HEPARIN 5000 UNIT/ML 1 ML VIAL ONE (12:18)
[2024-04-11] MEDS ORDERED: ATROPINE SULF 1 MG/10 ML SYR IV ONE (12:18)
[2024-04-11] MEDS ORDERED: FENTANYL CITR 100 MCG/2 ML ONE (12:18)
[2024-04-11] MEDS ORDERED: VERAPAMIL HCL 10 MG/4 ML VIAL IV ONE (12:18)
[2024-04-11] MEDS ORDERED: HEPARIN 10,000 UNIT/10 ML VIAL IV ONE (12:19)
[2024-04-11] MEDS ORDERED: TICAGRELOR 90 MG TABLET PO ONE (12:19)
[2024-04-11] MEDS ORDERED: CLOPIDOGREL 75 MG TABLET ONE (12:19)
[2024-04-11] MEDS: NA CHLORIDE 0.9% 500 ML ONE (13:50)
[2024-04-11 14:22] VITALS: TEMP 97.7
[2024-04-11 15:30] VITALS: BP 142/83
--- NOTE | 2024-04-12 02:28 | OP ---
Date of Procedure: 04/11/2024 Surgeon: MADINA NEAL Procedure Performed: 1.Selective coronary angiogram. 2.Left heart catheterization. 3.Right heart catheterization. Indication: Aortic valve stenosis evaluation. Access: 1.Right common femoral artery 6-Filipino closed with 6-Filipino Angio-Seal. 2.Right IJ 7-Filipino closed with manual pressure. Complications: None. Bleeding: Less than 50 mL. Anesthesia: Total sedation time was 1 hour, used fentanyl and Versed. Description Of Procedure: After risks, benefits, alternatives were explained, the patient agreed to proceed and signed informed consent. The patient was brought into cardiac catheterization laboratory , prepped and draped in usual sterile fashion. Then, I accessed the right common femoral artery usin g micropuncture kit, ultrasound guidance, and fluoroscopy, and then I accessed the right IJ using a m icropuncture kit and ultrasound guidance, and placed a 6-Filipino Andale sheath, then I took a 6-Fren ch JL4 catheter into the aortic root, engaged the left main, took standard views and then took a 6-Fr ench 3DRC catheter, engaged the RCA, took standard views and then used a 7-Filipino balloon-tipped [place] catheter through the IJ access and through right heart catheterization, and the catheter was advance d to the right atrium, right ventricle, pulmonary artery and wedge, obtained waveform and pressure. Thermodilution cardiac output was obtained, then removed the [place] catheter. Subsequently took AL1 ca theter with a straight wire across the aortic valve and then exchanged for a [place] catheter and us ing dual transducer, we measured simultaneous pressures through the aorta and the ventricle and then pullback did not record any gradient, then removed the catheter and sheath from the groin and placed a 6-Filipino Angio-Seal for closure with good hemostasis and then the IJ sheath was removed. Manual pr essure was used for closure with good hemostasis. Findings: 1.Left main is normal. 2.LAD widely patent proximal to [id number] LAD stent. Diagonal branch is jailed 50% ostially and with HONG-3 flow. 3.Left circumflex. It is a very large vessel and it is a codominant circulation. OM1 branch is sma ll. OM2 is also small, but has ostial 90% stenosis. Supplies a good amount of . 4.RCA also codominant with mid 40% stenosis with luminal irregularities. Right heart catheterization numbers: RA pressure is 2; RV pressure is 19/1, mean of 2; PA pressure 2 2/80, mean of 13; pulmonary wedge pressure was 8; LVEDP was 8; and cardiac output average is 4.5 L/mi nute and the mean gradient across the aortic valve was 15 mmHg. Aortic valve area was 1.4 cm2. Conclusion: 1.Widely patent LAD stent, otherwise moderate coronary artery disease, exception is OM2 branch, but it is small, will be left for medical management. 2.Normal filling pressure. 3.Moderate aortic valve stenosis with mean gradient of 50 mmHg, aortic valve area of 1.4 cm2. Recommendation: Medical management for now and repeat echo in 6 months. SR/MODL Voice ID: [id number] Report ID: [id number]
== END 2024-04-11 15:29 | disposition home or self-care (01) ==
LOC: CCL 10:30
PROVIDERS: ATTEND Internal Medicine
DX: I35.0 Nonrheumatic aortic (valve) stenosis (principal); I25.10 Atherosclerotic heart disease of native coronary artery without angina pectoris; I10 Essential (primary) hypertension; E78.5 Hyperlipidemia, unspecified; Z95.5 Presence of coronary angioplasty implant and graft
CPT/HCPCS: 93005; 85025; 80048; 36415; 83721; 85610; 85730; 71046; 93460; 76937; C1893; C1760; Q9967; G0269; J1644; J2001; J2250; J3010; J7040; 99152; 99153; J0461